=== PATIENT | female | born 1985 | race American Indian/Alaskan Native ===

== ENCOUNTER 2020-05-13 02:32 | Emergency (ER) | payer MEDICAID ==
[2020-05-13 03:55] VITALS: BP 115/61
[2020-05-13 04:47] LABS: Mean Corpuscular HGB Conc 29 % (30-34); Platelet Count 372 K/mm3 (140-440); Red Blood Count 4.04 M/mm3 (3.65-5.03); Red Cell Distribution Width 18.9 % (13.2-15.2)
[2020-05-13 04:48] LABS: Hematocrit 27.4 % (30.3-42.9); Hemoglobin 8.1 gm/dl (10.1-14.3); Mean Corpuscular Volume 68 fl (79-97)
[2020-05-13] MEDS ORDERED: traMADol 50 MG TAB PO ONE (07:22)
[2020-05-13] MEDS ORDERED: KETOROLAC 60 MG/2 ML INJ IM ONE (07:28)
--- NOTE | 2020-05-13 07:28 | Emergency Department Report ---
ED General Adult HPI - General Chief complaint: Sickle Cell Crisis Stated complaint: SICKLE CELL CRISIS/BODY HURTS Time Seen by Provider: 05/13/20 06:44 Source: patient, old records reviewed (First visit) Mode of arrival: Ambulatory Limitations: No Limitations - History of Present Illness Initial comments: 35-year-old female with a past medical history of sickle cell trait, anxiety, depression, and previous to ligation presents to the hospital with 2 complaints. Patient complains of generalized body pain and back pain rated 8/10 in intensity since yesterday morning due to sickle cell crisis. She also complains of menses x2 months since stopping Depakote. Patient is using 5-6 pads per day. Mild intermittent crampy suprapubic abdominal pain. No lightheadedness or fever reported Patient does not have a PMD, cage tender, or INVENTORY ASSISTANT physician Her son is also a patient - Related Data Previous Rx's Medication Instructions Recorded Last Taken Type Ferrous Sulfate [Ferrous Sulfate 324 mg PO DAILY #20 tablet.dr 05/13/20 Unknown Rx 324 MG] Ibuprofen [Motrin] 800 mg PO Q8HR PRN #30 tablet 05/13/20 Unknown Rx Ondansetron [Zofran Odt] 4 mg PO Q8HR PRN #20 tab.rapdis 05/13/20 Unknown Rx bisacodyL [Dulcolax] 1 - 2 tab PO DAILY PRN #20 tab 05/13/20 Unknown Rx medroxyPROGESTERone ACETATE 10 mg PO QDAY #10 tablet 05/13/20 Unknown Rx [Provera] traMADoL [Ultram 50 MG tab] 50 mg PO Q6HR PRN #15 tablet 05/13/20 Unknown Rx Allergies Allergy/AdvReac Type Severity Reaction Status Date / Time No Known Allergies Allergy Unverified 05/13/20 04:10 ED Review of Systems ROS: Stated complaint: SICKLE CELL CRISIS/BODY HURTS Other details as noted in HPI Comment: All other systems reviewed and negative ED Past Medical Hx - Past Medical History Previous Medical History?: Yes Hx Sickle Cell Disease: Yes (Sickle cell trait) Hx Psychiatric Treatment: Yes (Anxiety, Depression) - Surgical History Past Surgical History?: Yes Additional Surgical History: C-sections X 3. Tubal ligation - Social History Smoking Status: Current Every Day Smoker - Medications Home Medications: Home Medications Medication Instructions Recorded Confirmed Last Taken Type Ferrous Sulfate [Ferrous Sulfate 324 mg PO DAILY #20 tablet.dr 05/13/20 Unknown Rx 324 MG] Ibuprofen [Motrin] 800 mg PO Q8HR PRN #30 tablet 05/13/20 Unknown Rx Ondansetron [Zofran Odt] 4 mg PO Q8HR PRN #20 tab.rapdis 05/13/20 Unknown Rx bisacodyL [Dulcolax] 1 - 2 tab PO DAILY PRN #20 tab 05/13/20 Unknown Rx medroxyPROGESTERone ACETATE 10 mg PO QDAY #10 tablet 05/13/20 Unknown Rx [Provera] traMADoL [Ultram 50 MG tab] 50 mg PO Q6HR PRN #15 tablet 05/13/20 Unknown Rx ED Physical Exam - General Limitations: No Limitations - Other Other exam information: General: No acute distress Head: Atraumatic Eyes: normal appearance ENT: Moist mucous membranes Neck: Normal appearance, no midline tenderness Chest: Clear to auscultation bilaterally CV: Regular rate and rhythm Abdomen: Soft, normal bowel sounds, mild suprapubic tenderness, nondistended, no rebound or guarding Back: Normal inspection, mild lumbar 10 Extremity: Normal inspection, full range of motion Neuro: Alert O x 3, no facial asymmetry, speech clear, no gross motor sensory deficit Psych: Appropriate behavior Skin: No rash ED Course Vital Signs 05/13/20 05/13/20 05/13/20 03:35 08:11 08:12 Temperature 98.8 F Pulse Rate 69 Respiratory 18 16 16 Rate Blood Pressure 115/61 O2 Sat by Pulse 100 Oximetry ED Medical Decision Making - Lab Data Result diagrams: 05/13/20 04:15 Lab Results 05/13/20 05/13/20 05/13/20 Range/Units 04:15 07:01 08:07 WBC 7.3 (4.5-11.0) K/mm3 RBC 4.04 (3.65-5.03) M/mm3 Hgb 8.1 L (10.1-14.3) gm/dl Hct 27.4 L (30.3-42.9) % MCV 68 L (79-97) fl MCH 20 L (28-32) pg MCHC 29 L (30-34) % RDW 18.9 H (13.2-15.2) % Plt Count 372 (140-440) K/mm3 Percent Retic 1.17 (0.78-2.58) % HCG, Qual Negative (Negative) Urine HCG, Qual Negative (Negative) - Medical Decision Making Patient complains of pain secondary to sickle cell crisis however, patient sickle cell trait therefore crisis is less likely. No leukocytosis and reticulocyte count is normal. Patient also complains of menorrhagia for the last 2 months with a hemoglobin of 8.1. Patient does not have any signs of cardio pulmonary instability and does not require blood transfusion. She was provided tramadol and Toradol for pain in the ED. Will be discharged on iron tablets, Provera, tramadol, Zofran, and Dulcolax Hematology and CORRECTIONAL OFFICER CAPTAIN follow-up encouraged Critical Care Time: No Critical care attestation.: If time is entered above; I have spent that time in minutes in the direct care of this critically ill patient, excluding procedure time. ED Disposition Clinical Impression: Sickle cell trait, Musculoskeletal pain, Menorrhagia, Anemia Disposition: TO HOME OR SELFCARE Is pt being admited?: No Does the pt Need Aspirin: No Condition: Stable Instructions: Musculoskeletal Pain (ED), Menorrhagia (ED), Anemia (ED) Additional Instructions: Take the medication as prescribed. Follow-up with your doctor or doctor/clinic provided. Return if symptoms worsen as indicated by your discharge instructions. Prescriptions: bisacodyL [Dulcolax] 1 - 2 tab PO DAILY PRN #20 tab PRN Reason: Constipation Ferrous Sulfate [Ferrous Sulfate 324 MG] 324 mg PO DAILY #20 tablet. Ibuprofen [Motrin] 800 mg PO Q8HR PRN #30 tablet PRN Reason: Pain , Severe (7-10) medroxyPROGESTERone ACETATE [Provera] 10 mg PO QDAY #10 tablet traMADoL [Ultram 50 MG tab] 50 mg PO Q6HR PRN #15 tablet PRN Reason: Pain Ondansetron [Zofran Odt] 4 mg PO Q8HR PRN #20 tab.rapdis PRN Reason: Nausea And Vomiting Referrals: PRIMARY CARE, [Primary Care Provider] - 3-5 Days [facility] [Provider Group] - 3-5 Days (pattern vault clerk doctor ) LISETTE GIORDANO DO [Staff Physician] - 3-5 Days (cage tender) [facility] [Provider Group] - 3-5 Days Time of Disposition: 08:42
[2020-05-13 08:32] LABS: HCG Qualitative,Urine Negative (Negative)
[2020-05-13 10:50] LABS: Total Cells Counted 100
[2020-05-13 10:51] LABS: Basophils % (Manual) 0 % (0.0-1.8); Eosinophils % (Manual) 0 % (0.0-4.3)
[2020-05-13 10:52] LABS: Anisocytosis 1+; Hypochromasia 2+; Platelet Estimate Consistent w Auto; Target Cells Rare
== END 2020-05-13 08:52 | disposition home or self-care (01) ==
LOC: ED 02:32
DX: D57.3 Sickle-cell trait (principal); M54.6 Pain in thoracic spine; R10.2 Pelvic and perineal pain; D57.80 Other sickle-cell disorders without crisis; N92.0 Excessive and frequent menstruation with regular cycle; F32.9 Major depressive disorder, single episode, unspecified; F41.9 Anxiety disorder, unspecified; F17.200 Nicotine dependence, unspecified, uncomplicated; Z98.51 Tubal ligation status; Z98.890 Other specified postprocedural states; Z79.1 Long term (current) use of non-steroidal anti-inflammatories (NSAID); Z79.899 Other long term (current) drug therapy
CPT/HCPCS: 36415; 81025; 84703; 85007; 85025; 85045; 96372; 99283; J1885

== ENCOUNTER 2020-07-01 05:58 | Emergency (ER) | payer MEDICAID ==
[2020-07-01 07:35] VITALS: BP 121/68
--- NOTE | 2020-07-01 07:55 | Emergency Department Report ---
ED General Adult HPI - General Chief complaint: Sickle Cell Crisis Stated complaint: SICKLE CELL CRISIS/CHEST PAIN PUI?: No Time Seen by Provider: 07/01/20 07:50 Source: patient, RN notes reviewed, old records reviewed Mode of arrival: Ambulatory Limitations: No Limitations - History of Present Illness Initial comments: The patient was evaluated in the emergency department for symptoms described in the history of present illness. He/she was evaluated in the context of the global COVID-19 pandemic, which necessitated consideration that the patient might be at risk for infection with the virus that causes COVID-19. Institu tional protocols and algorithms that pertain to the evaluation of patients at risk for COVID-19 are in a state of rapid change based on information released by regulatory bodies including the CDC and federal and state organizations. These policies and algorithms were followed during the patient's care in the emergency department. Please note that these policies, procedures and recommendations changed on a rapid basis. During the entire history and physical examination, I am chaperoned by nurse Kim Grubbs The patient is a 35-year-old female. She states she does not have a local primary care doctor. She reports a history of sickle cell, uncertain of trait, or disease, while living in [place]. She states that she is not , has not delivered or given in the past 6 weeks, does not take oral contraceptives, and denies DVT and pulmonary embolism risk factors. She states that she is not . She states history of heavy menstruation. The patient presents to the ER today with a complaint of nontraumatic paralumbar back pain, and bilateral lower extremity quadricep and thigh pain. She also complains of dry cough, and chest wall pain since yesterday. Her paralumbar back pain and lower extremity pain have been present for approximately 3 to 4 days. No fever, no cough, no loss of taste or smell. Chest wall pain essential, right-sided and left-sided, does not radiate to the back, arms or neck, there is no vomiting, diaphoresis or exertional shortness of breath. Patient denies hematemesis and bright red blood per rectum. Patient also indicates intermittent heavy menstruation. The patient is elusive and unclear as to where/when she was formally diagnosed with sickle cell. -: days(s) Location: chest, back, left, right, lower extremity Radiation: non-radiation Quality: aching Consistency: intermittent Improves with: medication, rest Worsens with: movement - Related Data Previous Rx's Medication Instructions Recorded Last Taken Type Ibuprofen [Motrin] 800 mg PO Q8HR PRN #30 tablet 05/13/20 Unknown Rx Ondansetron [Zofran Odt] 4 mg PO Q8HR PRN #20 tab.rapdis 05/13/20 Unknown Rx medroxyPROGESTERone ACETATE 10 mg PO QDAY #10 tablet 05/13/20 Unknown Rx [Provera] Acetaminophen [Non-Aspirin Extra 500 mg PO Q6HR PRN #30 tablet 07/01/20 Unknown Rx Strength] Famotidine [Pepcid] 20 mg PO BID #60 tablet 07/01/20 Unknown Rx Ferrous Sulfate [Ferrous Sulfate 324 mg PO DAILY #20 tablet.dr 07/01/20 Unknown Rx 324 MG] Ibuprofen [Motrin] 600 mg PO Q8H PRN #30 tablet 07/01/20 Unknown Rx Allergies Allergy/AdvReac Type Severity Reaction Status Date / Time No Known Allergies Allergy Unverified 05/13/20 04:10 ED Review of Systems ROS: Stated complaint: SICKLE CELL CRISIS/CHEST PAIN Other details as noted in HPI Constitutional: denies: fever Eyes: denies: eye discharge ENT: denies: epistaxis Respiratory: denies: wheezing Cardiovascular: chest pain Gastrointestinal: denies: abdominal pain, nausea, vomiting, hematemesis, melena, hematochezia Genitourinary: other (Heavy menstruation). denies: dysuria Musculoskeletal: back pain, myalgia Skin: denies: lesions Neurological: denies: weakness Hematological/Lymphatic: denies: easy bleeding ED Past Medical Hx - Past Medical History Previous Medical History?: Yes Hx Sickle Cell Disease: Yes Hx Psychiatric Treatment: Yes (Anxiety, Depression) - Surgical History Past Surgical History?: Yes Additional Surgical History: C-sections X 3. Tubal ligation - Social History Smoking Status: Current Every Day Smoker Substance Use Type: Prescribed - Medications Home Medications: Home Medications Medication Instructions Recorded Confirmed Last Taken Type Ibuprofen [Motrin] 800 mg PO Q8HR PRN #30 tablet 05/13/20 Unknown Rx Ondansetron [Zofran Odt] 4 mg PO Q8HR PRN #20 tab.rapdis 05/13/20 Unknown Rx medroxyPROGESTERone ACETATE 10 mg PO QDAY #10 tablet 10/03/20 Unknown Rx [Provera] Acetaminophen [Non-Aspirin Extra 500 mg PO Q6HR PRN #30 tablet 07/01/20 Unknown Rx Strength] Famotidine [Pepcid] 20 mg PO BID #60 tablet 07/01/20 Unknown Rx Ferrous Sulfate [Ferrous Sulfate 324 mg PO DAILY #20 tablet.dr 07/01/20 Unknown Rx 324 MG] Ibuprofen [Motrin] 600 mg PO Q8H PRN #30 tablet 07/01/20 Unknown Rx ED Physical Exam - General Limitations: No Limitations General appearance: alert, in no apparent distress - Head Head exam: Present: atraumatic, normocephalic - Eye Eye exam: Present: normal appearance, EOMI. Absent: nystagmus - ENT ENT exam: Present: normal exam, normal orophraynx, mucous membranes moist, normal external ear exam - Neck Neck exam: Present: normal inspection, full ROM. Absent: tenderness, meningismus - Respiratory Respiratory exam: Present: normal lung sounds bilaterally, chest wall tenderness. Absent: respiratory distress, wheezes, rales, rhonchi, stridor - Cardiovascular Cardiovascular Exam: Present: regular rate, normal rhythm, normal heart sounds. Absent: bradycardia, tachycardia, irregular rhythm, systolic murmur, diastolic murmur, rubs, gallop - GI/Abdominal GI/Abdominal exam: Present: soft, normal bowel sounds. Absent: distended, tenderness, guarding, rebound, rigid, pulsatile mass - Extremities Exam Extremities exam: Present: normal inspection, full ROM, other (2+ pulses noted in the bilateral upper and lower extremities. There is no palpable cord. negative Homans sign. Muscular compartments are soft. The pelvis is stable.). Absent: pedal edema, calf tenderness - Back Exam Back exam: Present: normal inspection, full ROM. Absent: tenderness, CVA tenderness (R), CVA tenderness (L), paraspinal tenderness, vertebral tenderness - Neurological Exam Neurological exam: Present: alert, oriented X3, normal gait, other (No facial droop. Tongue midline. Extraocular movements intact bilaterally. Facial sensation intact to light touch in V1, V2, V3 distribution bilaterally. 5 and a 5 strength in 4 extremities. Sensation intact to light touch in 4 extremities.). Absent: motor sensory deficit - Psychiatric Psychiatric exam: Present: normal affect, normal mood - Skin Skin exam: Present: warm, dry, intact, normal color. Absent: rash ED Course Vital Signs 07/01/20 07:27 Temperature 98.4 F Pulse Rate 80 Respiratory 16 Rate Blood Pressure 121/68 O2 Sat by Pulse 100 Oximetry - Reevaluation(s) Reevaluation #1: 07/01/20 07:55 ga clinical radiologist aware Filled ID Written Drug QTY Days Prescriber Rx # Pharmacy * Refills Daily Dose Pymt Type DEPUTY SHERIFF/INVESTIGATOR 06/02/2020 2 06/02/2020 HYDROCODONE-ACETAMIN 5-325 MG 15.0 3 LARA BAL [id number] [facility] ([id number]) 0 25.0 [facility] [place] 05/14/2020 1 05/13/2020 TRAMADOL HCL 50 MG TABLET 15.0 4 MA LUCA [id number] [facility] ([id number]) 0 18.75 [facility] [place] 03/08/2020 1 03/08/2020 HYDROCODONE-ACETAMIN 5-325 MG 15.0 4 DU JUR [id number] [facility] ([id number]) 0 18.75 [facility] [place] 02/28/2020 4 02/26/2020 OXYCODON-ACETAMINOPHEN 7.5-325 12.0 2 KE COH [id number] [facility] ([id number]) 0 67.5 [facility] [place] 01/27/2020 2 01/26/2020 OXYCODONE-ACETAMINOPHEN 5-325 15.0 4 RU PABLITO [id number] [facility] ([id number]) 0 28.13 [facility] [place] 10/30/2019 3 10/30/2019 HYDROCODONE-ACETAMIN 5-325 MG 12.0 3 AL NETO [id number] [facility] ([id number]) 0 20.0 [place] [place] 09/09/2019 2 09/07/2019 TRAMADOL HCL 50 MG TABLET 12.0 3 BRIT [id number] [facility] ([id number]) 0 20.0 [facility] [place] 09/09/2019 2 09/07/2019 ZOLPIDEM TARTRATE 10 MG TABLET 5.0 5 BRIT [id number] [facility] ([id number]) 0 [place] 08/11/2019 4 08/11/2019 HYDROCODONE-ACETAMIN 5-325 MG 8.0 2 NI HUIZAR [id number] [facility] ([id number]) 0 20.0 [place] *Pharmacy is created using a combination of pharmacy name and the last four digits of the pharmacy license number. *Per CDC guidance, the MME conversion factors prescribed or provided as part of medication-assisted treatment for opioid use disorder should not be used to benchmark against dosage thresholds meant for opioids prescribed for pain. Buprenorphine products have no agreed upon morphine equivalency, and as partial opioid agonists, are not expected to be associated with overdose risk in the same dose-dependent manner as doses for full agonist opioids. MME = morphine milligram equivalents. mg = dose in milligrams. Prescribers Name Address [facility] Zip Phone KOBE BROOKS [address] [address] ASAD HOLLOWAY DDS [address] [facility] [address] HELEN MACIAS MD [address] [address] THIERRY EARLY [address] [facility] [address] [address] [place] [address] [facility] [address] KAR MCKENZIE [address] [place] [phone] [phone] ROCHELLE DE LA ROSA MD [address] [place] [place] [id number] [facility] Address [facility] Zip Phone [facility] [phone] [facility] [address] [facility] 101047 [phone] [facility] [address] [employer] [phone] [facility] [address] [id number] [phone] [facility] [address] [facility] [phone] [facility] [id number] ED Medical Decision Making - Lab Data Result diagrams: 07/01/20 07:37 07/01/20 07:37 Vital Signs 07/01/20 07:27 Temperature 98.4 F Pulse Rate 80 Respiratory 16 Rate Blood Pressure 121/68 O2 Sat by Pulse 100 Oximetry Lab Results 07/01/20 07/01/20 07/01/20 Range/Units 07:37 07:37 07:37 WBC 6.2 (4.5-11.0) K/mm3 RBC 4.32 (3.65-5.03) M/mm3 Hgb 8.7 L (10.1-14.3) gm/dl Hct 29.9 L (30.3-42.9) % MCV 69 L (79-97) fl MCH 20 L (28-32) pg MCHC 29 L (30-34) % RDW 18.3 H (13.2-15.2) % Plt Count 369 (140-440) K/mm3 Add Manual Diff Complete Total Counted 100 Seg Neuts % (Manual) 46.0 (40.0-70.0) % Band Neutrophils % 0 % Lymphocytes % (Manual) 46.0 H (13.4-35.0) % Reactive Lymphs % (Man) 5.0 % Monocytes % (Manual) 2.0 (0.0-7.3) % Eosinophils % (Manual) 1.0 (0.0-4.3) % Basophils % (Manual) 0 (0.0-1.8) % Metamyelocytes % 0 % Myelocytes % 0 % Promyelocytes % 0 % Blast Cells % 0 % Nucleated RBC % Not Reportable Seg Neutrophils # Man 2.9 (1.8-7.7) K/mm3 Band Neutrophils # 0.0 K/mm3 Lymphocytes # (Manual) 2.9 (1.2-5.4) K/mm3 Abs React Lymphs (Man) 0.3 K/mm3 Monocytes # (Manual) 0.1 (0.0-0.8) K/mm3 Eosinophils # (Manual) 0.1 (0.0-0.4) K/mm3 Basophils # (Manual) 0.0 (0.0-0.1) K/mm3 Metamyelocytes # 0.0 K/mm3 Myelocytes # 0.0 K/mm3 Promyelocytes # 0.0 K/mm3 Blast Cells # 0.0 K/mm3 WBC Morphology Not Reportable Hypersegmented Neuts Not Reportable Hyposegmented Neuts Not Reportable Hypogranular Neuts Not Reportable Smudge Cells Not Reportable Toxic Granulation Not Reportable Toxic Vacuolation Not Reportable Dohle Bodies Not Reportable Pelger-Huet Anomaly Not Reportable Jacquelyn Rods Not Reportable Platelet Estimate Consistent w auto Clumped Platelets Not Reportable Plt Clumps, EDTA Not Reportable Large Platelets Not Reportable Giant Platelets Not Reportable Platelet Satelliting Not Reportable Plt Morphology Comment Not Reportable RBC Morphology Not Reportable Dimorphic RBCs Not Reportable Polychromasia Not Reportable Hypochromasia 1+ Poikilocytosis Not Reportable Anisocytosis Not Reportable Microcytosis Not Reportable Macrocytosis Not Reportable Spherocytes Not Reportable Pappenheimer Bodies Not Reportable Sickle Cells Not Reportable Target Cells Few Tear Drop Cells Not Reportable Ovalocytes Not Reportable Helmet Cells Not Reportable Saeed-Wallsburg Bodies Not Reportable Depew Rings Not Reportable [place] Cells Not Reportable Bite Cells Not Reportable Crenated Cell Not Reportable Elliptocytes Few Acanthocytes (Spur) Not Reportable Rouleaux Not Reportable Hemoglobin C Crystals Not Reportable Schistocytes Not Reportable Malaria parasites Not Reportable Percent Retic 1.12 (0.78-2.58) % Sickle Cell Screen (Negative) Jewel Bodies Not Reportable Hem Pathologist Commnt No PT 12.6 (12.2-14.9) Sec. INR 0.95 (0.87-1.13) APTT 26.4 (24.2-36.6) Sec. Sodium (137-145) mmol/L Potassium (3.6-5.0) mmol/L Chloride (98-107) mmol/L Carbon Dioxide (22-30) mmol/L Anion Gap mmol/L BUN (7-17) mg/dL Creatinine (0.6-1.2) mg/dL Estimated GFR ml/min BUN/Creatinine Ratio % Glucose (65-100) mg/dL Calcium (8.4-10.2) mg/dL Total Creatine Kinase (30-135) units/L Troponin T (0.00-0.029) ng/mL Urine HCG, Qual Negative (Negative) 07/01/20 07/01/20 07/01/20 Range/Units 07:37 07:37 07:37 WBC (4.5-11.0) K/mm3 RBC (3.65-5.03) M/mm3 Hgb (10.1-14.3) gm/dl Hct (30.3-42.9) % MCV (79-97) fl MCH (28-32) pg MCHC (30-34) % RDW (13.2-15.2) % Plt Count (140-440) K/mm3 Add Manual Diff Total Counted Seg Neuts % (Manual) (40.0-70.0) % Band Neutrophils % % Lymphocytes % (Manual) (13.4-35.0) % Reactive Lymphs % (Man) % Monocytes % (Manual) (0.0-7.3) % Eosinophils % (Manual) (0.0-4.3) % Basophils % (Manual) (0.0-1.8) % Metamyelocytes % % Myelocytes % % Promyelocytes % % Blast Cells % % Nucleated RBC % Seg Neutrophils # Man (1.8-7.7) K/mm3 Band Neutrophils # K/mm3 Lymphocytes # (Manual) (1.2-5.4) K/mm3 Abs React Lymphs (Man) K/mm3 Monocytes # (Manual) (0.0-0.8) K/mm3 Eosinophils # (Manual) (0.0-0.4) K/mm3 Basophils # (Manual) (0.0-0.1) K/mm3 Metamyelocytes # K/mm3 Myelocytes # K/mm3 Promyelocytes # K/mm3 Blast Cells # K/mm3 WBC Morphology Hypersegmented Neuts Hyposegmented Neuts Hypogranular Neuts Smudge Cells Toxic Granulation Toxic Vacuolation Dohle Bodies Pelger-Huet Anomaly Jacquelyn Rods Platelet Estimate Clumped Platelets Plt Clumps, EDTA Large Platelets Giant Platelets Platelet Satelliting Plt Morphology Comment RBC Morphology Dimorphic RBCs Polychromasia Hypochromasia Poikilocytosis Anisocytosis Microcytosis Macrocytosis Spherocytes Pappenheimer Bodies Sickle Cells Target Cells Tear Drop Cells Ovalocytes Helmet Cells Saeed-[place] Bodies Depew Rings Renu Cells Bite Cells Crenated Cell Elliptocytes Acanthocytes (Spur) Rouleaux Hemoglobin C Crystals Schistocytes Malaria parasites Percent Retic (0.78-2.58) % Sickle Cell Screen Negative (Negative) Jewel Bodies Hem Pathologist Commnt PT (12.2-14.9) Sec. INR (0.87-1.13) APTT (24.2-36.6) Sec. Sodium 141 (137-145) mmol/L Potassium 3.9 (3.6-5.0) mmol/L Chloride 106.5 (98-107) mmol/L Carbon Dioxide 25 (22-30) mmol/L Anion Gap 13 mmol/L BUN 7 (7-17) mg/dL Creatinine 0.6 (0.6-1.2) mg/dL Estimated GFR > 60 ml/min BUN/Creatinine Ratio 12 % Glucose 109 H (65-100) mg/dL Calcium 9.6 (8.4-10.2) mg/dL Total Creatine Kinase 1200 H (30-135) units/L Troponin T < 0.010 (0.00-0.029) ng/mL Urine HCG, Qual (Negative) - EKG Data -: EKG Interpreted by Me EKG shows normal: sinus rhythm, axis, intervals, QRS complexes, ST-T waves Rate: normal - EKG Data Interpretation: normal EKG - Radiology Data Radiology results: pending, report reviewed, image reviewed X-ray of the chest is negative for acute disease - Medical Decision Making Differential diagnosis, including but not limited to: Costochondritis, GERD, gastritis, hiatal hernia, pneumonia, nonspecific myalgias/arthritis, history of sickle cell, asymptomatic anemia Assessment and plan: 35-year-old female, who is afebrile with reassuring vital signs, not currently tachycardic, tachypneic or hypoxic, PERC negative, without DVT, pulmonary embolism risk factors, over 24 hours of reproducible chest wall pain, EKG unremarkable, troponin negative x1, as per the [employer] clinical policy, myocardial infarction may be excluded with 1 set of troponins/cardiac enzymes if symptoms present for greater than 8 hours, with asymptomatic microcytic anemia, with a negative sickle cell screen. Patient does not appear to have an emergent medical condition at this time that would merit or require inpatient hospitalization. Suspect that patient may be being untruthful about history of sickle cell. Elevated CK reviewed and appreciated, rest, ice, compression, elevation, copious oral hydration, alternate Tylenol and ibuprofen, follow-up with outpatient primary care, and/or gynecology for microcytic anemia, and history of heavy menstruation. test negative at this time. Patient observed in this department for hours without clinical decompensation. Critical care attestation.: If time is entered above; I have spent that time in minutes in the direct care of this critically ill patient, excluding procedure time. ED Disposition Clinical Impression: Chest wall pain, Microcytic anemia, Elevated CK Disposition: DC-01 TO HOME OR SELFCARE Is pt being admited?: No Does the pt Need Aspirin: No Condition: Good Instructions: Chest Pain (ED) Additional Instructions: Rest, avoid heavy lifting, and avoid strenuous physical activities. Follow-up with a primary care doctor or manager of digital for anemia within the next month. Eat plenty of fiber, vegetables, and lean protein. Take the prescribed pain medications as needed/directed. Follow-up with a primary care doctor or process controller for chest wall pain within the next 3 to 5 days. Please drink 6 cups of water per day. Please have your primary care doctor contact medical records department to follow-up on nonemergent incidental laboratory study abnormalities. A sickle cell screen was sent today, it was found to be negative. Therefore, it is possible/likely that the patient does not have sickle cell disease. Recommend follow-up with an outpatient primary care doctor, or governor assembler within the next month for confirmatory testing. Please return to the emergency room right away with new pain, worsening pain, migration of pain, projectile vomiting, change in mental status, confusion, inability to tolerate liquid feeds, new, worsened or different symptoms not present on the initial emergency room evaluation. Please note that iron sulfate supplementation may cause constipation, bloating, and black stool. Therefore, please make certain to drink plenty of fluids, i deally water, and consume plenty of fiber, and vegetables. Referrals: [facility] MD IZAIAH [Primary Care Provider] - 3-5 Days [facility] [Provider Group] - 3-5 Days [facility] [Provider Group] - 3-5 Days NATALIE BHATT MD [Staff Physician] - as needed Heart Score - HEART Score History: Slightly suspicious EKG: Normal Age: < 45 Risk factors: No known risk factors Troponin: < normal limit HEART Score: 0 - Critical Actions Critical Actions: 0-3 pts:0.9-1.7%risk of adverse cardiac event.Candidate for discharge
[2020-07-01 08:36] LABS: INR 0.95 (0.87-1.13)
[2020-07-01 08:37] LABS: Partial Thromboplastin Time 26.4 Sec. (24.2-36.6)
[2020-07-01] MEDS ORDERED: SODIUM CHLORIDE 0.9% 1000 ML 1,000 ML IV ONE (08:51)
[2020-07-01] MEDS ORDERED: KETOROLAC 30 MG/1 ML INJ IV ONE (08:51)
[2020-07-01] MEDS ORDERED: ACETAMINOPHEN 325 MG TAB PO ONE (08:51)
[2020-07-01] MEDS ORDERED: MORPHINE 4 MG/1 ML INJ IV ONE (08:52)
[2020-07-01 09:10] LABS: HCG Qualitative,Urine Negative (Negative); Mean Corpuscular HGB Conc 29 % (30-34); Platelet Count 369 K/mm3 (140-440); Red Blood Count 4.32 M/mm3 (3.65-5.03); Red Cell Distribution Width 18.3 % (13.2-15.2)
[2020-07-01 09:36] LABS: Hematocrit 29.9 % (30.3-42.9); Hemoglobin 8.7 gm/dl (10.1-14.3); Mean Corpuscular Volume 69 fl (79-97)
--- NOTE | 2020-07-01 09:56 | XRay Report ---
CHEST 2 VIEWS INDICATION / CLINICAL INFORMATION: Hx of sickle cell with chest tightness. COMPARISON: None available. FINDINGS: SUPPORT DEVICES: None. HEART / MEDIASTINUM: No significant abnormality. LUNGS / PLEURA: No significant pulmonary or pleural abnormality. No pneumothorax. ADDITIONAL FINDINGS: No significant additional findings. IMPRESSION: 1. No acute abnormality of the chest. Signer Name: Angelito Guerrero MD Signed: 07/01/2020 9:51 AM Workstation Name: [id number]
[2020-07-01 10:07] LABS: Blood Urea Nitrogen 7 mg/dL (7-17); Calcium 9.6 mg/dL (8.4-10.2); Hemolysis Index 4
[2020-07-01 10:08] LABS: BUN/Creatinine Ratio 12
[2020-07-01 10:41] LABS: Basophils % (Manual) 0 % (0.0-1.8); Total Cells Counted 100
[2020-07-01 10:58] LABS: Hypochromasia 1+; Platelet Estimate Consistent w Auto; Target Cells Few
== END 2020-07-01 12:13 | disposition home or self-care (01) ==
LOC: ED 05:58
DX: R07.89 Other chest pain (principal); D50.8 Other iron deficiency anemias; R94.4 Abnormal results of kidney function studies
CPT/HCPCS: 36415; 71046; 80048; 81025; 82550; 84484; 85007; 85025; 85045; 85610; 85660; 85730; 93005; 96361; 96374; 96375; 99284; J1885; J2270; J7030